=== PATIENT | female | born 1975 | race Two or more races ===

== ENCOUNTER 2020-06-08 22:00 | Emergency (ER) | payer MEDICAID ==
[~2020-06-08] VITALS: Ht 154.9 cm; Wt 59.1 kg
[2020-06-08] MEDS ORDERED: ACETAMINOPHEN 325MG TABLET PO ONE (23:00)
[2020-06-09 00:41] VITALS: BP 108/68
== END 2020-06-09 00:43 | disposition home or self-care (01) ==
LOC: ER 23:15
DX: U07.1 COVID-19 (principal); J06.9 Acute upper respiratory infection, unspecified; Z88.0 Allergy status to penicillin
CPT/HCPCS: 71045; 99284; C9803; U0003